=== PATIENT | male | born 1950 | race Caucasian/White ===

== ENCOUNTER 2021-09-18 07:06 | Day surgery (SDC) | payer MEDICARE, BC ==
[~2021-09-18 07:06] MED LIST: Lactated Ringers 1,000 ML IV SCH; Lidocaine 1%/Sod Bicarbonate in NS 8.4% 1 ML Syringe IDERM PRN; Morphine 8 MG, EPINEPHrine 0.3 MG, Cefuroxime 750 MG, Ketorolac 30 MG, Sodium Chloride ... PRN; Sodium Chloride 0.9% 10 ML Syringe FLUSH PRN; Sodium Chloride 0.9% 10 ML Syringe FLUSH SCH
[2021-09-18] MEDS ORDERED: ceFAZolin 1 GM Vial ONE (07:36)
[2021-09-18] MEDS ORDERED: Propofol 200 MG/20 ML SDV ONE ×2 (07:36→09:10)
[2021-09-18] MEDS ORDERED: Midazolam 1 MG/ML 2 ML SDV ONE (07:36)
[2021-09-18] MEDS ORDERED: fentaNYL 100 MCG/2 ML SDV ONE (07:36)
[2021-09-18] MEDS ORDERED: Vancomycin 1 GM SDV ONE (07:38)
[2021-09-18] MEDS ORDERED: Albuterol 0.083% 2.5 MG/3 ML Neb Soln NEB ONE (08:00)
[2021-09-18] MEDS ORDERED: ePHEDrine 50 MG/ML SDV ONE (08:28)
[2021-09-18] MEDS ORDERED: Lactated Ringers 1,000 ML ONE (08:28)
[2021-09-18] MEDS ORDERED: fentaNYL 100 MCG/2 ML SDV IVPUSH PRN (08:53)
[2021-09-18] MEDS ORDERED: Ondansetron 4 MG/2 ML SDV IVPUSH PRN (08:53)
[2021-09-18] MEDS ORDERED: HYDROmorphone 0.5 MG/0.5 ML Syringe IVPUSH PRN (08:53)
[2021-09-18] MEDS ORDERED: Lidocaine 1% 4 ML ONE (09:00)
[2021-09-18] MEDS ORDERED: Ondansetron 4 MG/2 ML SDV ONE (09:25)
[2021-09-18] MEDS ORDERED: Ketorolac 15 MG/ML SDV ONE (09:25)
[2021-09-18] MEDS ORDERED: Acetaminophen/HYDROcodone 325-5 MG Tab PO ONE (11:40)
== END 2021-09-18 14:30 | disposition home or self-care (01) ==
LOC: JD.SDS 07:06
PROVIDERS: ATTEND Orthopaedic Surgery
DX: M16.11 Unilateral primary osteoarthritis, right hip (principal); M06.9 Rheumatoid arthritis, unspecified; I10 Essential (primary) hypertension; F17.200 Nicotine dependence, unspecified, uncomplicated; Z88.1 Allergy status to other antibiotic agents; Z79.899 Other long term (current) drug therapy
CPT/HCPCS: 27130; 36415; 73501; 86850; 86900; 86901; 97110; 97116; 97161; A9270; C1713; C1776; J0171; J0690; J0697; J1885; J2250; J2270; J2405; J2704; J3010; J3370; J7120; 01214; 99100